=== PATIENT | male | born 1995 | race Caucasian/White ===

== ENCOUNTER 2022-01-17 20:27 | Emergency (ER) | payer BC ==
[2022-01-17 20:49] VITALS: BP 133/77; PULSE 75; BMI 28.8
== END 2022-01-17 22:40 | disposition home or self-care (01) ==
LOC: JER 20:27
PROC: 0HQGXZZ Repair Left Hand Skin, External Approach (ICD-10-PCS; principal; 2022-01-17)
DX: S61.211A Laceration without foreign body of left index finger without damage to nail, initial encounter (principal); W26.8XXA Contact with other sharp object(s), not elsewhere classified, initial encounter
CPT/HCPCS: 73130-TC-LT-FY; 99283-25